=== PATIENT | female | born 1985 | race Caucasian/White ===

== ENCOUNTER 2020-09-12 20:21 | Emergency (ER) | payer MEDICAID ==
[2020-09-12 20:27] VITALS: TEMP 99.2
--- NOTE | 2020-09-12 21:17 | XR ---
EXAMINATION TYPE: XR chest 2V DATE OF EXAM: 09/12/2020 COMPARISON: NONE HISTORY: Short of breath TECHNIQUE: 2 views FINDINGS: Heart and mediastinum are normal. Lungs are clear. Diaphragm is normal. Bony thorax appears normal. IMPRESSION: Normal chest.
--- NOTE | 2020-09-12 21:28 | ED ---
Fever HPI - General Source: patient Mode of arrival: ambulatory Limitations: no limitations <Jose Haq - Last Filed: 09/12/20 23:17> <Krystle Louis - Last Filed: 09/13/20 13:59> - General Chief Complaint: Fever Stated Complaint: Fever, Body aches Time Seen by Provider: 09/12/20 21:02 - History of Present Illness Initial Comments: 35-year-old female presents to emergency Department with a chief complaint of body aches and chills. States the symptoms began yesterday and she has been sleeping most today. Patient reports also having a dry cough but denies any chest pain and shortness of breath. She also reports a fever of 101 and has been taking [id number] antipyretics. No history of asthma or smoking. She does report possible exposure to known Covid patient. She denies any URI symptoms. She denies any abdominal pain, nausea, vomiting or diarrhea. Denies possibility for at this time. (Jose Haq) - Related Data Previous Rx's Medication Instructions Recorded Dexamethasone [Decadron] 6 mg PO DAILY #10 tablet 09/12/20 Allergies Allergy/AdvReac Type Severity Reaction Status Date / Time No Known Allergies Allergy Verified 09/12/20 20:26 Review of Systems ROS Other: All systems not noted in ROS Statement are negative. <Jose Haq - Last Filed: 09/12/20 23:17> ROS Other: All systems not noted in ROS Statement are negative. <Krystle oLuis - Last Filed: 09/13/20 13:59> ROS Statement: Those systems with pertinent positive or pertinent negative responses have been documented in the HPI. Past Medical History Past Medical History: No Reported History History of Any Multi-Drug Resistant Organisms: None Reported Past Surgical History: No Surgical Hx Reported Past Psychological History: No Psychological Hx Reported Smoking Status: Never smoker Past Alcohol Use History: Occasional Past Drug Use History: None Reported <Jose Haq - Last Filed: 09/12/20 23:17> General Exam Limitations: no limitations General appearance: alert, in no apparent distress Head exam: Present: atraumatic, normocephalic, normal inspection Eye exam: Present: normal appearance, PERRL, EOMI Pupils: Present: normal accommodation ENT exam: Present: normal exam, normal oropharynx, mucous membranes moist Neck exam: Present: normal inspection, full ROM. Absent: tenderness Respiratory exam: Present: normal lung sounds bilaterally. Absent: respiratory distress, wheezes, rales, rhonchi, stridor, chest wall tenderness Cardiovascular Exam: Present: regular rate, normal rhythm, normal heart sounds Extremities exam: Present: normal inspection, full ROM, normal capillary refill. Absent: tenderness, pedal edema, joint swelling Back exam: Present: normal inspection, full ROM. Absent: tenderness, CVA tenderness (R), CVA tenderness (L) Neurological exam: Present: alert, oriented X3, CN II-XII intact, normal gait Psychiatric exam: Present: normal affect, normal mood Skin exam: Present: warm, dry, intact, normal color <Jose Haq - Last Filed: 09/12/20 23:17> Course Vital Signs 09/12/20 09/12/20 20:22 21:36 Temperature 99.2 F Pulse Rate 105 H 90 Respiratory 19 16 Rate Blood Pressure 146/90 162/100 O2 Sat by Pulse 98 98 Oximetry Medical Decision Making <Jose Haq - Last Filed: 09/12/20 23:17> <Krystle Louis - Last Filed: 09/13/20 13:59> - Medical Decision Making 35-year-old female presents to emergency Department with a chief complaint of body aches and chills. On physical examination, patient is not in any respiratory distress. She tested positive for Covid here. Chest x-ray shows no signs of pneumonia. Patient was advised to quarantine for the next 10 days from the day of onset of symptoms. She was also advised to take Tylenol for fever. Strict return parameters were thoroughly discussed the patient was understanding and agreeable. Case discussed with (Jose Haq) I was available for consultation in the emergency department. The history and physical exam were done by the midlevel provider. I was consulted for this patients care. I reviewed the case with the midlevel provider and based on their presentation of the patient, I agree with the assessment, medical decision making and plan of care as documented. Chart was dictated using [employer] dictation software. Attempts were made to correct any dictation errors however some typographical errors may persist. Patient was seen during a national state of emergency due to the Covid-19 pandemic. (Krystle Louis) - Lab Data Lab Results 09/12/20 Range/Units 20:30 Coronavirus (PCR) Detected A (Not Detectd) Disposition Is patient prescribed a controlled substance at d/c from ED?: No Time of Disposition: 21:28 <Jose Haq - Last Filed: 09/12/20 23:17> <Krystle Louis - Last Filed: 09/13/20 13:59> Clinical Impression: COVID-19 Disposition: HOME SELF-CARE Condition: Stable Instructions (If sedation given, give patient instructions): Fever in Adults (ED) Additional Instructions: Take prescribed medication as directed. Follow up with the primary care physician. Return to emergency department if symptoms worsen. Prescriptions: Dexamethasone [Decadron] 6 mg PO DAILY #10 tablet Referrals: Michele Schreiber MD [Primary Care Provider] - 1-2 days
[2020-09-12 21:37] VITALS: BP 162/100; PULSE 90; RESP 16
== END 2020-09-12 21:37 | disposition home or self-care (01) ==
LOC: EC 20:21
DX: U07.1 COVID-19 (principal)
CPT/HCPCS: 71046; 87635; 99283